=== PATIENT | female | born 1970 | race Caucasian/White ===

== ENCOUNTER 2021-04-02 09:38 | Observation (INO) | payer OTHER ==
[~2021-04-02] VITALS: Ht 157.5 cm; Wt 124.0 kg
[~2021-04-02 09:38] MED LIST: ALBU18HF INH; BECL10.62 INH; BUPIVACAINE/PF 0.5% ONE; EPINEPHRINE 1 MG/ML, 1ML ONE
[2021-04-02] MEDS ORDERED: LACTATED RINGERS 1,000 ML IV SCH (10:30)
[2021-04-02] MEDS ORDERED: CHLORHEXIDINE 15 ML UDC PO ONE (10:30)
[2021-04-02 10:37] VITALS: BP 145/85
[2021-04-02] MEDS ORDERED: PROPOFOL 10 MG/ML, 20ML ONE (11:58)
[2021-04-02] MEDS ORDERED: LIDOCAINE-MPF 2% ,5ML ONE (11:58)
[2021-04-02] MEDS ORDERED: SCOPOLAMINE 1MG PATCH TD ONE (11:59)
[2021-04-02] MEDS ORDERED: SUCCINYLCHOLINE 20 MG/ML, 10ML ONE (11:59)
[2021-04-02] MEDS ORDERED: DEXAMETHASONE 4 MG/ML, 5ML ONE (12:00)
[2021-04-02] MEDS ORDERED: SCOPOLAMINE 1MG PATCH TD SCH (12:00)
[2021-04-02] MEDS ORDERED: CEFAZOLIN 1,000 MG ONE (12:33)
[2021-04-02] MEDS ORDERED: FENTANYL PF 100 MCG/2ML ONE ×4 (12:48→14:12)
[2021-04-02] MEDS ORDERED: PROMETHAZINE 25 MG/ML, 1ML IVPush PRN (13:00)
[2021-04-02] MEDS ORDERED: ALBUTEROL SULFATE 2.5 MG/3 ML NPPB PRN (13:00)
[2021-04-02] MEDS ORDERED: OXYcodone 5 MG/5 ML ORAL.SOL UDC PO PRN (13:00)
[2021-04-02] MEDS ORDERED: ACETAMINOPHEN 325 MG TABLET PO PRN (13:00)
[2021-04-02] MEDS ORDERED: ONDANSETRON 2MG/ML, 2ML ONE (13:09)
[2021-04-02] MEDS ORDERED: SUGAMMADEX 200 MG/2 ML IVPush ONE (13:21)
[2021-04-02] MEDS ORDERED: PROMETHAZINE 25 MG/ML, 1ML IM PRN (13:30)
[2021-04-02] MEDS ORDERED: PHENOL THROAT SPRAY BOTTLE MM PRN (13:30)
[2021-04-02] MEDS ORDERED: ONDANSETRON 2MG/ML, 2ML IVPush PRN (13:30)
[2021-04-02] MEDS ORDERED: PROMETHAZINE 12.5 MG SUPP PR PRN (13:30)
[2021-04-02] MEDS ORDERED: METHOCARBAMOL 1,000 MG in DEXTROSE 5% 100 ML IV ONE (13:30)
[2021-04-02] MEDS ORDERED: LORazepam 2 MG/ML, 1ML IV PRN (13:30)
[2021-04-02] MEDS ORDERED: ALBUTEROL HFA 90 MCG/SPRAY INH PRN (13:30)
[2021-04-02] MEDS ORDERED: hydrALAzine 20 MG/ML, 1ML IVPush PRN (13:30)
[2021-04-02] MEDS ORDERED: DIPHENHYDRAMINE 50 MG/ML, 1ML IV PRN (13:30)
[2021-04-02] MEDS ORDERED: ENALAPRILAT 1.25 MG/ML, 2ML IV PRN (13:30)
[2021-04-02] MEDS: FENTANYL PF 100 MCG/2ML IV PRN ×4 (13:42→14:14)
[2021-04-02] MEDS ORDERED: MORPHINE SULFATE 4 MG/ML, 1ML ONE ×4 (14:37→18:21)
[2021-04-02] MEDS: ACETAMINOPHEN 100 ML IVPB SCH ×2 (14:37→21:15)
[2021-04-02] MEDS: morphine SULFATE 10 MG/ML, 1ML IVPush PRN ×4 (14:40→18:33)
[2021-04-02] MEDS ORDERED: LORazepam 2 MG/ML, 1ML ONE (14:44)
[2021-04-02] MEDS ORDERED: LABETALOL 5MG/ML, 20ML IVPush PRN (15:00)
[2021-04-02] MEDS: LACTATED RINGERS 1,000 ML IV SCH ×2 (17:19→20:10)
[2021-04-02 20:02] VITALS: BP 139/82
[2021-04-02] MEDS: FAMOTIDINE 20 MG/2 ML IVPush SCH (21:15)
[2021-04-02] MEDS ORDERED: HYDROcodone/APAP 7.5-325MG/15ML UDC PO PRN (22:30)
[2021-04-03 00:03] VITALS: BP 144/74
[2021-04-03] MEDS: LACTATED RINGERS 1,000 ML IV SCH ×2 (00:39→10:30)
[2021-04-03] MEDS: KETOROLAC 30 MG/1 ML IVPush PRN ×2 (00:47→10:35)
[2021-04-03] MEDS: ACETAMINOPHEN 100 ML IVPB SCH (03:24)
[2021-04-03 05:09] LABS: BASOPHILS % (AUTO) 0 % (0-1); EOSINOPHILS % (AUTO) 0 % (1-7); LYMPHOCYTES % (AUTO) 9 % (22-44); MEAN CORPUSCULAR HEMOGLOBIN 30.9 pg (27.0-34.8); MEAN CORPUSCULAR HGB CONC 33.6 g/dL (32.4-35.8); MEAN PLATELET VOLUME 8.8 fL (7.4-10.4); MONOCYTES % (AUTO) 6 % (2-9); NEUTROPHILS % (AUTO) 84 % (42-75); PLATELET COUNT 314 x10^3/uL (130-400); RED BLOOD COUNT 4.78 x10^6/uL (3.82-5.3); RED CELL DISTRIBUTION WIDTH 12.8 % (9.6-15.2)
[2021-04-03 05:11] LABS: CHLORIDE 104 mmol/L (98-107)
[2021-04-03 05:19] LABS: ALBUMIN 3.6 g/dL (3.4-5.0); ANION GAP 10 mmol/L (5-15); CALCIUM 8.9 mg/dL (8.5-10.1); CREATININE 0.61 mg/dL (0.55-1.02)
[2021-04-03] MEDS: FAMOTIDINE 20 MG/2 ML IVPush SCH (08:10)
[2021-04-03] MEDS ORDERED: HYDR15SO3 PO (08:22)
[2021-04-03 08:41] VITALS: BP 137/82
[2021-04-03] MEDS ORDERED: ENOXAPARIN 40 MG/0.4 ML SQ SCH (09:00)
[2021-04-03] MEDS ORDERED: BECLOMETHASONE DIPROPIONATE INH SCH (09:00)
[2021-04-03 11:05] VITALS: BP 133/67
== END 2021-04-03 11:35 | disposition home or self-care (01) ==
LOC: OUT 09:38 → 4NE 15:21 → OUT 20:33 → 4NE 20:35
PROVIDERS: ADMIT Thoracic Surgery (Cardiothoracic Vascular Surgery); ATTEND Thoracic Surgery (Cardiothoracic Vascular Surgery)
DX: E66.01 Morbid (severe) obesity due to excess calories (principal); Z20.822 Contact with and (suspected) exposure to COVID-19; K44.9 Diaphragmatic hernia without obstruction or gangrene; G47.33 Obstructive sleep apnea (adult) (pediatric); R53.81 Other malaise; R12 Heartburn; J45.909 Unspecified asthma, uncomplicated; Z87.442 Personal history of urinary calculi; Z68.42 Body mass index [BMI] 45.0-49.9, adult; Z79.899 Other long term (current) drug therapy
CPT/HCPCS: 36415; 43281; 43775; 80048; 82040; 85025; 87635; 93005; 96361; 96365; 96372; 96375; 96376; G0378; J0131; J0171; J0330; J0690; J1100; J1650; J1885; J2060; J2270; J2405; J2704; J2800; J3010; J3490; J7120; S0020